=== PATIENT | male | born 1970 | race Caucasian/White ===

== ENCOUNTER → 2019-11-22 | Outpatient (CLI) | payer BC ==
[~2019-11-22] MED LIST: BACT800T5 PO; HYDR-3715 PO; IBUP80TA PO; LOMO2.5T PO; NORCOTAB PO; TYLE325T5 PO
--- NOTE | 2019-11-22 09:48 | REP ---
Thoracic spine three views: There is demineralization. There is scoliosis convex left at the lower thoracic spine. Vertebral body heights and alignment are normal. There is degenerative disc disease throughout the thoracic spine. Impression: No compression deformity or listhesis. Scoliosis convex left. Degenerative disc disease throughout the thoracic spine. Electronically Signed by Blanco Abdullahi MD 11/22/2019 09:40 A
== END ==
LOC: M ADAMS 09:17
PROVIDERS: ATTEND Physician Assistant
DX: S20.229A Contusion of unspecified back wall of thorax, initial encounter (principal); W18.30XA Fall on same level, unspecified, initial encounter; Y92.9 Unspecified place or not applicable

== ENCOUNTER → 2019-12-21 | Outpatient (REF) | payer MEDICAID ==
[2019-12-21 16:12] LABS: BASO % 0.2 % (0.0-1.0); EOS % 0.6 % (0.0-3.0); HEMATOCRIT 40.9 % (42.0-52.0); HEMOGLOBIN 13.7 g/dl (13.5-17.5); LYMPH # 3.1 10^3/uL (1.5-5.0); LYMPH % 49.1 % (24.0-44.0); MEAN CORPUSCULAR HEMOGLOBIN 33.6 pg (27.0-33.0); MEAN CORPUSCULAR HGB CONC 33.5 g/dl (32.0-36.5); MEAN CORPUSCULAR VOLUME 100.2 fl (80.0-96.0); MONO # 0.4 10^3/uL (0.0-0.8); MONO % 6.7 % (0.0-5.0); NEUTROPHILS # 2.7 10^3/uL (1.5-8.5); NEUTROPHILS % 43.2 % (36.0-66.0); PLATELET COUNT, AUTOMATED 239 10^3/uL (150-450); RED BLOOD COUNT 4.08 10^6/uL (4.30-6.10); WHITE BLOOD COUNT 6.3 10^3/uL (4.0-10.0)
[2019-12-21 16:32] LABS: ALBUMIN 3.7 GM/DL (3.2-5.2); ALT/SGPT 27 U/L (12-78); BILIRUBIN,TOTAL 0.3 MG/DL (0.2-1.0); BLOOD UREA NITROGEN 11 MG/DL (7-18); CALCIUM LEVEL 8.8 MG/DL (8.5-10.1); CARBON DIOXIDE LEVEL 31 MEQ/L (21-32); CHLORIDE LEVEL 106 MEQ/L (98-107); CREATININE FOR GFR 0.92 MG/DL (0.70-1.30); GLOMERULAR FILTRATION RATE > 60.0 (>60); GLUCOSE, FASTING 87 MG/DL (70-100); POTASSIUM SERUM 4.3 MEQ/L (3.5-5.1); SODIUM LEVEL 139 MEQ/L (136-145); TOTAL PROTEIN 6.5 GM/DL (6.4-8.2)
== END ==
LOC: M SFHCADAM 13:23
PROVIDERS: ATTEND Family Medicine
DX: M54.6 Pain in thoracic spine (principal)

== ENCOUNTER → 2019-12-23 | Outpatient (REF) | payer MEDICAID ==
[2019-12-23 16:49] LABS: THYROID STIMULATING HORMONE 1.39 uIU/ML (0.358-3.740)
[2019-12-23 16:51] LABS: FOLATE 10.7 NG/ML
== END ==
LOC: M SFHCADAM 14:49
PROVIDERS: ATTEND Family Medicine
DX: D75.89 Other specified diseases of blood and blood-forming organs (principal)

== ENCOUNTER → 2020-01-25 | Outpatient (CLI) | payer MEDICAID ==
--- NOTE | 2020-01-25 10:30 | REP ---
UPPER QUADRANT SONOGRAPHY: HISTORY: Macrocytosis. Comparison CT study, March 12, 2014. SONOGRAPHIC FINDINGS: Scanning through the right upper quadrant of the abdomen demonstrates mildly increased hepatic parenchymal echogenicity, question fatty infiltration. There are areas of slightly hypoechoic fat sparing near the ronaldo. No mass lesion is seen. Common bile duct is normal measuring 0.3 cm in greatest diameter. No pancreatic abnormality is observed. There is no evidence of ascites or right renal abnormality. Right kidney measures 12.1 x 6.7 x 5.0 cm. Normal caliber aorta is encountered. Images of the gallbladder demonstrate multiple tiny echogenic foci adherent to the gallbladder wall, question of polyps. There is a ring down artifact emanating from one of these. No definite shadowing calculus is seen. I note that there were was a tiny calculus visible in the gallbladder on CT scanning March 12, 2014. IMPRESSION: Multiple tiny echogenic foci adherent to the wall of the gallbladder. Polyps versus adenomyomatosis. No definite mobile shadowing calculus. The [address] study did show cholelithiasis. There is evidence of fatty infiltration of the liver. Electronically Signed by Kris Shore MD 01/25/2020 01:35 P
== END ==
LOC: M RAD 08:03
PROVIDERS: ATTEND Family Medicine
DX: D75.89 Other specified diseases of blood and blood-forming organs (principal)

== ENCOUNTER → 2020-03-21 | Outpatient (REF) | payer OTHER ==
[~2020-03-21] MED LIST changes: +DULO1CAP5 PO
== END ==
LOC: M LABDRWAD 16:58
PROVIDERS: ATTEND Physical Medicine & Rehabilitation
DX: M51.37 Other intervertebral disc degeneration, lumbosacral region (principal)

== ENCOUNTER → 2020-04-06 | Outpatient (CLI) | payer MEDICAID, OTHER ==
[~2020-04-06] MED LIST changes: +LIDOCAINE 1% MDV 20ML VIAL As Ordered ONE
[2020-04-06 12:23] VITALS: BP 149/83
[2020-04-06 13:35] LABS: BASO % 0.2 % (0.0-1.0); EOS % 0.6 % (0.0-3.0); HEMATOCRIT 40.8 % (42.0-52.0); HEMOGLOBIN 13.8 g/dl (13.5-17.5); LYMPH # 2.8 10^3/uL (1.5-5.0); LYMPH % 42.1 % (24.0-44.0); MEAN CORPUSCULAR HEMOGLOBIN 33.5 pg (27.0-33.0); MEAN CORPUSCULAR HGB CONC 33.8 g/dl (32.0-36.5); MONO # 0.4 10^3/uL (0.0-0.8); MONO % 6.5 % (0.0-5.0); NEUTROPHILS # 3.3 10^3/uL (1.5-8.5); NEUTROPHILS % 50.3 % (36.0-66.0); PLATELET COUNT, AUTOMATED 239 10^3/uL (150-450); RED BLOOD COUNT 4.12 10^6/uL (4.30-6.10); WHITE BLOOD COUNT 6.6 10^3/uL (4.0-10.0)
--- NOTE | 2020-04-07 09:14 | REP ---
CT-GUIDED LEFT ILIAC BONE MARROW BIOPSY The procedure was performed under the direct supervision of Dr. Sanchez. The risks and benefits of the procedure were explained to the patient and informed consent was obtained. The left iliac bone was localized using CT guidance. The skin was prepped and draped in a sterile fashion. 1% lidocaine was used as a local anesthetic. Using CT guidance a 11-gauge coaxial needle biopsy system was inserted and advanced into the bone. 12 ml of aspirate and one core biopsy sample was obtained. The patient tolerated the procedure well and there were no immediate complications. After the appropriate amount of monitored convalescence the patient was discharged from the department. Electronically Signed by UBALOD Cartagena 04/06/2020 02:08 P Electronically Signed by Blanco Sanchez MD 04/07/2020 09:06 A
== END ==
LOC: M IRPRO 11:48
PROVIDERS: ATTEND Internal Medicine Hematology & Oncology
DX: D75.89 Other specified diseases of blood and blood-forming organs (principal)

== ENCOUNTER → 2020-05-16 | Outpatient (REF) | payer OTHER, MEDICAID ==
[~2020-05-16] MED LIST changes: -LIDOCAINE 1% MDV 20ML VIAL As Ordered ONE
[2020-06-21 11:45] LABS: ANTINUCLEAR ANTIBODIES DIRECT See Separate Report
== END ==
LOC: M LABDRWAD 10:02
PROVIDERS: ATTEND Physician Assistant
DX: M47.27 Other spondylosis with radiculopathy, lumbosacral region (principal)

== ENCOUNTER 2021-04-15 16:00 | Emergency (ER) | payer MEDICAID, OTHER ==
[~2021-04-15] VITALS: Ht 193 cm; Wt 136.4 kg
[2021-04-15] MEDS ORDERED: PREG50CA2 PO (16:12)
[2021-04-15 18:06] LABS: BASO % 0.2 % (0.0-1.0); EOS # 0.1 10^3/uL (0.0-0.5); EOS % 0.6 % (0.0-3.0); HEMATOCRIT 43.3 % (42.0-52.0); HEMOGLOBIN 14.7 g/dl (13.5-17.5); LYMPH # 3.4 10^3/uL (1.5-5.0); LYMPH % 31.8 % (24.0-44.0); MEAN CORPUSCULAR HEMOGLOBIN 33.8 pg (27.0-33.0); MEAN CORPUSCULAR HGB CONC 33.9 g/dl (32.0-36.5); MEAN CORPUSCULAR VOLUME 99.5 fl (80.0-96.0); MONO # 0.6 10^3/uL (0.0-0.8); NEUTROPHILS # 6.6 10^3/uL (1.5-8.5); NEUTROPHILS % 61.1 % (36.0-66.0); PLATELET COUNT, AUTOMATED 240 10^3/uL (150-450); RED BLOOD COUNT 4.35 10^6/uL (4.30-6.10); WHITE BLOOD COUNT 10.7 10^3/uL (4.0-10.0)
[2021-04-15 18:28] LABS: BLOOD UREA NITROGEN 13 MG/DL (7-18); C REACTIVE PROTEIN QUANTITATIV 2.29 MG/DL (0.00-0.30); CALCIUM LEVEL 8.7 MG/DL (8.5-10.1); CARBON DIOXIDE LEVEL 31 MEQ/L (21-32); CHLORIDE LEVEL 103 MEQ/L (98-107); CREATININE FOR GFR 1.09 MG/DL (0.70-1.30); GLOMERULAR FILTRATION RATE > 60.0 (>56); GLUCOSE, FASTING 110 MG/DL (70-100); POTASSIUM SERUM 4.5 MEQ/L (3.5-5.1); SODIUM LEVEL 137 MEQ/L (136-145)
[2021-04-15 18:32] LABS: ERYTHROCYTE SEDIMENTATION RATE 8 mm/hr (0-20)
[2021-04-15] MEDS ORDERED: DOXY1CAP62 PO (19:14)
[2021-04-15] MEDS ORDERED: DOXYCYCLINE HYCLATE 100MG TABLET PO ONE (19:15)
[2021-04-15 19:32] VITALS: BP 132/65
== END 2021-04-15 19:33 | disposition home or self-care (01) ==
LOC: M ED 16:00
DX: S20.362A Insect bite (nonvenomous) of left front wall of thorax, initial encounter (principal); W57.XXXA Bitten or stung by nonvenomous insect and other nonvenomous arthropods, initial encounter; Y92.89 Other specified places as the place of occurrence of the external cause

== ENCOUNTER → 2022-01-29 | Outpatient (CLI) | payer OTHER ==
[~2022-01-29] MED LIST changes: +DOXY-443 PO; +PREG50CA2 PO
== END ==
LOC: M CARPUL 10:20
PROVIDERS: ATTEND Family Medicine
DX: R06.2 Wheezing (principal)

== ENCOUNTER → 2022-02-12 | Outpatient (REF) | payer OTHER, MEDICAID ==
[2022-02-12 13:54] LABS: BASO % 0.1 % (0.0-1.0); EOS # 0.1 10^3/uL (0.0-0.5); EOS % 0.7 % (0.0-3.0); HEMATOCRIT 44.1 % (42.0-52.0); HEMOGLOBIN 15.1 g/dl (13.5-17.5); LYMPH # 3.2 10^3/uL (1.5-5.0); LYMPH % 46.7 % (24.0-44.0); MEAN CORPUSCULAR HEMOGLOBIN 34.3 pg (27.0-33.0); MEAN CORPUSCULAR HGB CONC 34.2 g/dl (32.0-36.5); MEAN CORPUSCULAR VOLUME 100.2 fl (80.0-96.0); MONO # 0.6 10^3/uL (0.0-0.8); MONO % 8.1 % (2.0-8.0); NEUTROPHILS % 44.3 % (36.0-66.0); PLATELET COUNT, AUTOMATED 230 10^3/uL (150-450); WHITE BLOOD COUNT 6.8 10^3/uL (4.0-10.0)
[2022-02-12 14:38] LABS: ALT/SGPT 34 U/L (12-78); BILIRUBIN,TOTAL 0.4 MG/DL (0.2-1.0); BLOOD UREA NITROGEN 13 MG/DL (7-18); CALCIUM LEVEL 9.1 MG/DL (8.5-10.1); CARBON DIOXIDE LEVEL 30 MEQ/L (21-32); CHLORIDE LEVEL 106 MEQ/L (98-107); CHOLESTEROL LEVEL 133 MG/DL (<200); CHOLESTEROL RISK RATIO 2.293 (<5); CREATININE FOR GFR 1.14 MG/DL (0.70-1.30); FREE T4 1.03 NG/DL (0.76-1.46); GLOMERULAR FILTRATION RATE > 60.0 (>56); GLUCOSE, FASTING 103 MG/DL (70-100); HDL CHOLESTEROL 58 MG/DL (>40); LDL CHOLESTEROL 57 MG/DL (<100); NON-HDL-C 75 MG/DL; POTASSIUM SERUM 4.2 MEQ/L (3.5-5.1); SODIUM LEVEL 139 MEQ/L (136-145); TOTAL PROTEIN 6.9 GM/DL (6.4-8.2); TRIGLYCERIDES LEVEL 92 MG/DL (<150)
== END ==
LOC: M SFHCADAM 08:01
PROVIDERS: ATTEND Family Medicine
DX: Z00.00 Encounter for general adult medical examination without abnormal findings (principal)

== ENCOUNTER → 2022-02-12 | Outpatient (CLI) | payer OTHER, MEDICAID | LOC: M ADAMS 08:29 | PROVIDERS: ATTEND Family Medicine | DX: R06.2 Wheezing (principal) ==

== ENCOUNTER → 2022-07-06 | Outpatient (CLI) | payer OTHER ==
[~2022-07-06] MED LIST changes: +PERC5TAB12 PO
[2022-07-06 13:31] LABS: HEMOGLOBIN 14.1 g/dl (13.5-17.5); MEAN CORPUSCULAR HEMOGLOBIN 33.3 pg (27.0-33.0); MEAN CORPUSCULAR HGB CONC 34.4 g/dl (32.0-36.5); MEAN CORPUSCULAR VOLUME 96.7 fl (80.0-96.0); PLATELET COUNT, AUTOMATED 267 10^3/uL (150-450); RED BLOOD COUNT 4.24 10^6/uL (4.30-6.10); WHITE BLOOD COUNT 6.3 10^3/uL (4.0-10.0)
[2022-07-06 14:28] LABS: ALBUMIN 3.6 GM/DL (3.2-5.2); ALT/SGPT 41 U/L (12-78); BILIRUBIN,TOTAL 0.3 MG/DL (0.2-1.0); BLOOD UREA NITROGEN 18 MG/DL (7-18); CALCIUM LEVEL 9.5 MG/DL (8.5-10.1); CARBON DIOXIDE LEVEL 27 MEQ/L (21-32); CHLORIDE LEVEL 105 MEQ/L (98-107); CREATININE FOR GFR 1.28 MG/DL (0.70-1.30); GLOMERULAR FILTRATION RATE > 60.0 (>56); GLUCOSE, FASTING 92 MG/DL (70-100); POTASSIUM SERUM 4.6 MEQ/L (3.5-5.1); SODIUM LEVEL 138 MEQ/L (136-145); TOTAL PROTEIN 7.1 GM/DL (6.4-8.2)
== END ==
LOC: M RAD 11:45
PROVIDERS: ATTEND Urology
DX: N20.1 Calculus of ureter (principal)

== ENCOUNTER → 2022-07-08 | Outpatient (CLI) | payer MEDICAID, OTHER | LOC: M LABSMTC 11:07 | PROVIDERS: ATTEND Anesthesiology | DX: Z01.812 Encounter for preprocedural laboratory examination (principal); Z20.822 Contact with and (suspected) exposure to COVID-19 ==

== ENCOUNTER 2022-07-29 10:50 | Emergency (ER) | payer OTHER ==
[~2022-07-29] VITALS: Ht 193 cm; Wt 132.5 kg
[2022-07-29] MEDS ORDERED: TRAM50TA2 (11:01)
[2022-07-29 12:34] LABS: BASO % 0.2 % (0.0-1.0); EOS # 0.1 10^3/uL (0.0-0.5); EOS % 1.2 % (0.0-3.0); HEMATOCRIT 41.2 % (42.0-52.0); LYMPH # 2.8 10^3/uL (1.5-5.0); MEAN CORPUSCULAR HEMOGLOBIN 33.3 pg (27.0-33.0); MEAN CORPUSCULAR VOLUME 97.9 fl (80.0-96.0); MONO # 0.5 10^3/uL (0.0-0.8); NEUTROPHILS # 2.5 10^3/uL (1.5-8.5); NEUTROPHILS % 42.4 % (36.0-66.0); PLATELET COUNT, AUTOMATED 239 10^3/uL (150-450); RED BLOOD COUNT 4.21 10^6/uL (4.30-6.10); WHITE BLOOD COUNT 5.8 10^3/uL (4.0-10.0)
[2022-07-29] MEDS ORDERED: KETO10TAB PO ×2 (13:41→13:44)
[2022-07-29] MEDS ORDERED: CEFD300C41 PO (13:41)
[2022-07-29] MEDS ORDERED: FLOM0.4C39 PO ×2 (13:41→13:44)
[2022-07-29] MEDS ORDERED: CEFD300CAP PO (13:44)
[2022-07-29 13:53] VITALS: BP 136/96
== END 2022-07-29 13:54 | disposition home or self-care (01) ==
LOC: M ED 10:50
DX: N20.2 Calculus of kidney with calculus of ureter (principal); N13.4 Hydroureter; K21.9 Gastro-esophageal reflux disease without esophagitis; F17.200 Nicotine dependence, unspecified, uncomplicated; Z79.899 Other long term (current) drug therapy

== ENCOUNTER → 2022-08-02 | Outpatient (REF) | payer OTHER ==
[~2022-08-02] MED LIST changes: +CEFD300C41 PO; +CEFD300CAP PO; +FLOM0.4C39 PO; +KETO10TAB PO; +TRAM50TA2
== END ==
LOC: M SMT 17:30
PROVIDERS: ATTEND Urology
DX: N20.0 Calculus of kidney (principal)

== ENCOUNTER 2023-01-04 08:14 | Emergency (ER) | payer MEDICARE, OTHER ==
[~2023-01-04] VITALS: Ht 193 cm; Wt 129.5 kg
[2023-01-04 08:16] VITALS: BP 166/97
[2023-01-04] MEDS ORDERED: CEPHALEXIN 500 MG CAP PO ONE (08:50)
[2023-01-04] MEDS ORDERED: CEPH500C PO (09:07)
== END 2023-01-04 09:25 | disposition home or self-care (01) ==
LOC: M ED 08:14
DX: J02.9 Acute pharyngitis, unspecified (principal); K12.2 Cellulitis and abscess of mouth

== ENCOUNTER 2023-05-05 08:03 | Emergency (ER) | payer MEDICARE ==
[~2023-05-05] VITALS: Ht 193 cm; Wt 127.3 kg
[~2023-05-05 08:03] MED LIST changes: +CEPH500C PO
[2023-05-05 09:04] LABS: RSV AMPLIFICATION NEGATIVE (NEGATIVE)
[2023-05-05] MEDS ORDERED: dexAMETHasone 4 MG TAB PO ONE (10:15)
[2023-05-05] MEDS ORDERED: CEPHALEXIN 500 MG CAP PO ONE (10:15)
[2023-05-05] MEDS ORDERED: MEDR4PAK PO (10:35)
[2023-05-05] MEDS ORDERED: VENTAER INH (10:35)
[2023-05-05] MEDS ORDERED: CEPH500T PO (10:35)
[2023-05-05 10:49] VITALS: TEMP 98.2; O2SAT 96
[2023-05-05 10:55] VITALS: BP 158/90
== END 2023-05-05 11:08 | disposition home or self-care (01) ==
LOC: M ED 08:03
DX: J20.9 Acute bronchitis, unspecified (principal); J98.01 Acute bronchospasm; K12.2 Cellulitis and abscess of mouth; F17.200 Nicotine dependence, unspecified, uncomplicated; K21.9 Gastro-esophageal reflux disease without esophagitis

== ENCOUNTER 2023-12-16 07:10 | Emergency (ER) | payer MEDICARE ==
[~2023-12-16] VITALS: Ht 193 cm; Wt 127.0 kg
[~2023-12-16 07:10] MED LIST changes: +CEFD1CAP9 PO; +CEFD300C PO; -CEFD300C41 PO; +CEPH500T PO; +MEDR4PAK PO; +PRED20TA PO; -PREG50CA2 PO; +PREG50CA3 PO; +VENTAER INH; +ZITHTAB PO
[2023-12-16] MEDS ORDERED: VENTAER INH (08:33)
[2023-12-16] MEDS ORDERED: PRED20TA PO (08:33)
[2023-12-16 08:51] VITALS: BP 142/70; TEMP 98.2; O2SAT 98
== END 2023-12-16 08:52 | disposition home or self-care (01) ==
LOC: M ED 07:10
DX: J02.9 Acute pharyngitis, unspecified (principal); F17.210 Nicotine dependence, cigarettes, uncomplicated; Z79.51 Long term (current) use of inhaled steroids; Z79.52 Long term (current) use of systemic steroids
CPT/HCPCS: 99283; J1100

== ENCOUNTER → 2024-03-11 | Outpatient (REF) | payer MEDICARE, MEDICAID ==
[~2024-03-11] MED LIST changes: +DOXY-323 PO; -DOXY-443 PO
== END ==
LOC: M LABSMT 08:48
PROVIDERS: ATTEND Urology
DX: Z30.2 Encounter for sterilization (principal)

== ENCOUNTER → 2024-03-23 | Outpatient (CLI) | payer MEDICARE | LOC: M RAD 10:11 | PROVIDERS: ATTEND Urology | DX: Z30.2 Encounter for sterilization (principal) ==

== ENCOUNTER → 2024-03-24 | Outpatient (CLI) | payer MEDICARE ==
[2024-03-24 17:56] LABS: HEMOGLOBIN 15.7 g/dl (13.5-17.5); MEAN CORPUSCULAR HEMOGLOBIN 34.2 pg (27.0-33.0); MEAN CORPUSCULAR HGB CONC 34.9 g/dl (32.0-36.5); PLATELET COUNT, AUTOMATED 263 10^3/uL (150-450); RED BLOOD COUNT 4.59 10^6/uL (4.30-6.10); WHITE BLOOD COUNT 8.3 10^3/uL (4.0-10.0)
[2024-03-24 18:18] LABS: ALKALINE PHOSPHATASE 41 U/L (46-116); ALT/SGPT 21 U/L (7.0-40); AST/SGOT 9 U/L (<34); BILIRUBIN,TOTAL 0.3 MG/DL (0.3-1.2); BLOOD UREA NITROGEN 19 MG/DL (9-23); CALCIUM LEVEL 9.8 MG/DL (8.5-10.1); CARBON DIOXIDE LEVEL 30 MMOL/L (20-31); CHLORIDE LEVEL 104 MMOL/L (98-107); CREATININE FOR GFR 1.02 MG/DL (0.70-1.30); GLOMERULAR FILTRATION RATE > 60.0 (>56); GLUCOSE, FASTING 89 MG/DL (60-100); POTASSIUM SERUM 4.7 MMOL/L (3.5-5.1); SODIUM LEVEL 139 MMOL/L (136-145); TOTAL PROTEIN 6.7 G/DL (5.7-8.2)
== END ==
LOC: M LAB 16:33
PROVIDERS: ATTEND Urology
DX: Z30.2 Encounter for sterilization (principal)

== ENCOUNTER 2024-03-26 08:28 | Day surgery (SDC) | payer MEDICAID, MEDICARE ==
[~2024-03-26] VITALS: Ht 193 cm; Wt 124.7 kg
[2024-03-26] MEDS ORDERED: ACETAMINOPHEN 1000MG 100ML IV BAG As Ordered ONE (09:23)
[2024-03-26] MEDS ORDERED: MIDAZOLAM INJ 2MG/2ML VIAL As Ordered ONE (09:23)
[2024-03-26] MEDS ORDERED: propofoL 500 MG/50 ML VIAL As Ordered ONE (09:23)
[2024-03-26] MEDS ORDERED: propofoL 200 MG/20 ML VIAL As Ordered ONE (09:23)
[2024-03-26] MEDS ORDERED: fentaNYL 100 MCG/2 ML INJECTION As Ordered ONE (09:23)
[2024-03-26] MEDS ORDERED: ceFAZolin SOD 3 GM in IV 1 EA IV ONE (09:40)
[2024-03-26] MEDS ORDERED: LR 1,000 ML IV SCH (09:55)
[2024-03-26] MEDS: ceFAZolin SOD 1 GM in D5W MINI-BAG PLUS 50 ML IV ONE (10:00)
[2024-03-26] MEDS: ceFAZolin SOD 2 GM in IV 1 EA IV ONE (10:00)
[2024-03-26 10:47] VITALS: BP 148/88; TEMP 97.3; O2SAT 96
== END 2024-03-26 10:51 | disposition home or self-care (01) ==
LOC: M SDC 08:28
PROVIDERS: ATTEND Urology
DX: N20.0 Calculus of kidney (principal); F17.210 Nicotine dependence, cigarettes, uncomplicated
CPT/HCPCS: 50590; 74018; J0131; J0690; J2250; J3010

== ENCOUNTER → 2024-05-04 | Outpatient (CLI) | payer MEDICAID, MEDICARE ==
[2024-05-04 17:17] LABS: SEMEN APPEARANCE OPAQUE (OPAQUE); SEMEN VISCOSITY LIQUID (LIQUID); SEMEN VOLUME 1.2 ml (2.0-5.0); WBC CONCENTRATION >1 M/ml (<=1 M/ml)
== END ==
LOC: M RAD 16:13
PROVIDERS: ATTEND Urology
DX: N20.0 Calculus of kidney (principal); Z30.2 Encounter for sterilization